=== PATIENT | male | born 1975 | race Caucasian/White ===

== ENCOUNTER 2020-12-19 04:36 | Day surgery (SDC) | payer OTHER ==
[2020-12-15 10:02] VITALS: BMI 32.9
[2020-12-19] MEDS ORDERED: DEXAMETHASONE SOD PHOSPHATE/PF 10 MG/ML SDV ONE (10:00)
[2020-12-19] MEDS ORDERED: MIDAZOLAM HCL 2 MG/2 ML SINGLE DOSE VIAL ONE ×3 (10:01→10:24)
[2020-12-19] MEDS ORDERED: PROPOFOL 20 ML ONE ×4 (10:24→11:02)
[2020-12-19] MEDS ORDERED: oxyCODONE HCL 5 MG TABLET PO PRN (10:34)
[2020-12-19] MEDS ORDERED: ONDANSETRON 4 MG/2 ML VIAL IVPUSH PRN (10:34)
[2020-12-19] MEDS ORDERED: LACTATED RINGERS SOLUTION 1,000 ML IV SCH (10:45)
[2020-12-19] MEDS ORDERED: ceFAZolin 2 GRAM PREMIX BAG IVPB ONE (10:55)
[2020-12-19 14:13] VITALS: BP 131/94; PULSE 93; TEMP 97.2
== END 2020-12-19 15:28 | disposition home or self-care (01) ==
LOC: EDSEX → JASU-SURG 04:36
PROVIDERS: ATTEND Orthopaedic Surgery
PROC: 0RBK4ZZ Excision of Left Shoulder Joint, Percutaneous Endoscopic Approach (ICD-10-PCS; 2020-12-19)
PROC: 0RQK4ZZ Repair Left Shoulder Joint, Percutaneous Endoscopic Approach (ICD-10-PCS; 2020-12-19)
PROC: 0MM24ZZ Reattachment of Left Shoulder Bursa and Ligament, Percutaneous Endoscopic Approach (ICD-10-PCS; 2020-12-19)
PROC: 0RNK4ZZ Release Left Shoulder Joint, Percutaneous Endoscopic Approach (ICD-10-PCS; principal; 2020-12-19 10:15)
DX: M75.42 Impingement syndrome of left shoulder (principal); M24.112 Other articular cartilage disorders, left shoulder; M75.52 Bursitis of left shoulder; S43.432A Superior glenoid labrum lesion of left shoulder, initial encounter; X58.XXXA Exposure to other specified factors, initial encounter; Y93.9 Activity, unspecified; Y92.9 Unspecified place or not applicable; Y99.9 Unspecified external cause status; I10 Essential (primary) hypertension; E11.9 Type 2 diabetes mellitus without complications
CPT/HCPCS: 82962; 88304-TC; 94760